=== PATIENT | female | born 1980 | race Caucasian/White ===

== ENCOUNTER 2019-05-21 06:46 | Emergency (ER) | payer MEDICAID, SELFPAY ==
[2019-05-21 06:55] VITALS: BP 125/66; PULSE 82; RESP 16; TEMP 36.4; O2SAT 100
--- NOTE | 2019-05-21 07:06 | ED.GENADUL_ITS ---
Discharge Plan Disposition Patient Disposition: HOME Condition: Stable Discharge Details Chief Complaint: Nk/Back Pain Clinical Impression: Acute cervical myofascial strain, Acute thoracic myofascial strain Primary Care Provider: Margie Ramey ED Provider: Tara Lou Home Meds and New Rx's Prescriptions: New methocarbamol 750 mg tablet 750 mg PO QID PRN (Reason: muscle spasm) Qty: 10 RF: 0 lidocaine [Lidoderm] 5 % adhesive patch,medicated 1 patch TP DAILY PRN (Reason: pain) Qty: 15 RF: 0 Continued acetaminophen [Tylenol] 325 MG tablet 1,000 mg PO Q4H PRN RF: 0 multivitamin 1 EACH capsule 1 cap PO DAILY RF: 0 ibuprofen 600 MG tablet 600 mg PO Q6H PRN (Reason: Pain) Qty: 20 RF: 0 Probiotic 3 billion cell Capsule 3,000 mmu cells PO DAILY RF: 0 Discharge Instructions Instructions: Cervical Strain (ED), Thoracic Back Strain (ED) Additional Instructions: Alternate ice and heat to the affected area several times daily for 20 minutes at a time. Alternate Tylenol and Motrin as needed and directed for pain. Use the methocarbamol muscle relaxer and Lidoderm topical patch as directed. Follow-up with your primary care doctor this week for reevaluation as needed. Return immediately to the emergency department if you develop any worsening or new concerning symptoms. Stand Alone Forms: Work Release Discharge Data Discharge Date/Time-TO BE ENTERED AT DEPARTURE: 05/21/19 08:04 Discharge Physician: Tara Lou Medical Decision Making 39-year-old female presents with right neck and right upper back pain that started over the past few days after frequently lifting kids at work and at home. She admits to limitation of range of motion of head and right upper extremity. Denies any weakness or numbness. She is holding her head slightly rotated to the left with limitation of side bending and rotation to the right. She has significant tenderness to palpation of right cervical paraspinal and right thoracic paraspinal region. No focal d eficits. Neurovascularly intact. Patient denies chance of and declines test. She has an allergy to adhesive but has tolerated salon pause. Will place a Lidoderm patch and give a Toradol injection. She is driving herself home. We will send with a prescription for Lidoderm patch as well as Robaxin. She is advised to follow-up with her primary care doctor for reevaluation and to return here anytime if worse. HPI General Mode of arrival: ambulatory . Date/Time Provider Initiated Documentation: 05/21/19 06:50 . Limitations to Documentation: no limitations . Information obtained by: patient . HPI Narrative: Patient is a 39-year-old female who presents with right neck and right upper back pain over the past few days. 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 She is having limitation of range of motion of her head to the right as well as lifting her right upper arm due to significant pain. She has alternated Tylenol and Motrin and use salon past without significant relief. She states she was unable to sleep due to the pain. She states she woke this morning with worsening pain and spasm. She denies any fever, arm weakness, numbness, chest pain or shortness of breath. Related Data Home Medications Medication Instructions Recorded Confirmed acetaminophen [Tylenol] 1,000 mg PO Q4H PRN tab-cap 07/06/13 05/21/19 ibuprofen 600 mg PO Q6H PRN #20 tab 03/28/18 05/21/19 multivitamin 1 cap PO DAILY 03/28/18 05/21/19 Probiotic 3,000 mmu cells PO DAILY 05/21/19 05/21/19 lidocaine [Lidoderm] 1 patch TP DAILY PRN #15 each 05/21/19 methocarbamol 750 mg PO QID PRN #10 tab 05/21/19 Previous Rx's Medication Instructions Recorded ibuprofen 600 mg PO Q6H PRN #20 tab 03/28/18 lidocaine [Lidoderm] 1 patch TP DAILY PRN #15 each 05/21/19 methocarbamol 750 mg PO QID PRN #10 tab 05/21/19 Allergies Allergy/AdvReac Type Severity Reaction Status Date / Time adhesive Allergy blistering Unverified 05/21/19 06:59 ciprofloxacin [From Cipro] Allergy hives/rash Unverified 05/21/19 06:59 nickel [Nickel] Allergy rash Unverified 05/21/19 06:59 General Stated Complaint: Nk/Back Pain JEROME: 4 Review of Systems Review of Systems All systems reviewed & are unremarkable except as noted in HPI and below Constitutional Reports as per HPI, Denies chills and Denies fever(s) Eyes Denies blurry vision ENT Denies dizziness, Reports neck pain, Denies sore throat and Denies throat swelling Cardiovascular Denies chest pain and Denies dyspnea Respiratory Denies cough and Denies dyspnea Gastrointestinal Denies abdominal pain, Denies diarrhea and Denies vomiting Genitourinary Denies hematuria and Denies dysuria Musculoskeletal Reports back pain, Reports neck pain and Denies numbness Integumentary/Breasts Denies lesions and Denies rash Neurologic Denies dizziness, Denies focal weakness and Denies numbness Allergic/Immunologic Denies throat swelling REPLACED BY [facility] Medical History No significant past medical history (Acute) Surgical History H/O section (Chronic) Social History Smoking/Tobacco Use Status: Current every day Tobacco Type: cigarettes Smoking cigarettes per day: 10 Alcohol Intake: current Alcohol Intake frequency: a few times a month Alcohol type: wine Drug use: Never Do you feel safe at home: Yes Do you feel safe in your relationship?: Yes Exam Const General: cooperative, healthy appearing and no acute distress HENMT Head: normal to inspection Mouth: oral mucosae normal Eyes General: appearance normal, both eyes and all related structures Resp Effort & Inspection: normal respiratory effort and able to speak in complete sentences Cardio Rate: regular rate Back/Spine/Pelvis Cervical Spine: cervical muscular tenderness (Right side) and No cervical spinal tenderness Thoracic/Lumbar Spine: paraspinal tenderness (Right upper thoracic) and No thoracic spinal tenderness Other: Limited range of motion of head, most significantly with right side bend ing and right rotation. Holding head slightly rotated to the left. Back/spine/pelvis image: 1. Significant tenderness palpation extending from right paraspinal cervical region down to right upper paraspinal thoracic region. No evidence of rash or trauma. Skin General skin exam: no rashes or lesions noted Neuro General: alert, awake and oriented x3 Motor: muscle tone normal throughout and strength 5/5 throughout Other: Muscle strength bilateral upper extremities within normal limits and 5/5. Limited range of motion with abduction and flexion of right shoulder due to pain and right-sided neck and back. Extrem General: normal to inspection Other: Limited abduction and flexion of right arm due to pain in right neck and right upper back but normal muscle strength against resistance. Psych Appearance: grossly normal Affect: normal affect Course Vital Signs Temperature 97.6 F 05/21/19 06:55 Pulse 82 05/21/19 06:55 Respiratory Rate 16 05/21/19 06:55 Blood Pressure 125/66 05/21/19 06:55 Pulse Oximetry 100 05/21/19 06:55 Temperature 97.6 F 05/21/19 06:55 Pulse 82 05/21/19 06:55 Respiratory Rate 16 05/21/19 06:55 Respiratory Effort Non-Labored 05/21/19 06:58 Blood Pressure 125/66 05/21/19 06:55 Blood Pressure Position Sitting 05/21/19 06:55 Pulse Oximetry 100 05/21/19 06:55 Oxygen Delivery Method Room Air 05/21/19 06:55 Oxygen Flow Rate 0 05/21/19 06:55 Pain Level 6 05/21/19 07:01
[2019-05-21] MEDS: Ketorolac 60 MG/2 ML VIAL IM (07:32)
[2019-05-21] MEDS: Lidocaine 5% Patch 1 PATCH TP (07:33)
== END 2019-05-21 08:04 | disposition home or self-care (01) ==
PROVIDERS: Emergency Provider Physician Assistant; PCP Nurse Practitioner Adult Health
DX: S16.1XXA Strain of muscle, fascia and tendon at neck level, initial encounter (principal); S29.012A Strain of muscle and tendon of back wall of thorax, initial encounter; X50.3XXA Overexertion from repetitive movements, initial encounter
CPT/HCPCS: 96372; 99284; J1885

== ENCOUNTER 2019-11-19 09:28 | Outpatient (CLI) | payer MEDICAID, SELFPAY ==
[2019-11-19 11:36] LABS: HCG Quant, Pregnancy 7124 mIU/mL (1-3)
== END 2019-11-19 09:48 ==
PROVIDERS: PCP Nurse Practitioner Adult Health; Visit Provider Advanced Practice Midwife
DX: O20.8 Other hemorrhage in early pregnancy (principal)
CPT/HCPCS: 36415; 84702

== ENCOUNTER 2019-11-21 10:18 | Outpatient (CLI) | payer MEDICAID, SELFPAY ==
[2019-11-21 11:51] LABS: HCG Quant, Pregnancy 7724 mIU/mL (1-3)
== END 2019-11-21 10:38 ==
PROVIDERS: PCP Nurse Practitioner Adult Health; Visit Provider Advanced Practice Midwife
DX: Z32.01 Encounter for pregnancy test, result positive (principal)
CPT/HCPCS: 36415; 84702

== ENCOUNTER 2019-11-21 13:22 | Outpatient (CLI) | payer MEDICAID, SELFPAY ==
--- NOTE | 2019-11-21 14:00 | DI.US_ITS ---
EXAM: US OB 1ST TRIMESTER CLINICAL HISTORY: spotting, threatened ab, minimal rise in hcg over 48 hrs., N20.9. COMPARISON: OB US 2-3 TRIMESTER TRANSABD*P from 05/03/2013 TECHNIQUE: Transabdominal Transvaginal first trimester obstetrical ultrasound performed. FINDINGS: Sonographic images demonstrate a single intrauterine gestation. A yolk sac and pole are seen. Sonographically assessed gestational age based upon crown-rump length is: 6 weeks. heart rate motion is Dopplered at: 105 bpm. Small amount of free fluid in the right adnexa. Both ovaries were visualized. There is a corpus luteal cyst on the right ovary. The left ovary is u nremarkable. IMPRESSION: Single live intrauterine gestation as above. DATA REPOSITORY:
== END 2019-11-21 13:42 ==
PROVIDERS: PCP Nurse Practitioner Adult Health; Visit Provider Advanced Practice Midwife
DX: N83.291 Other ovarian cyst, right side; O20.0 Threatened abortion
CPT/HCPCS: 76801

== ENCOUNTER 2020-01-01 14:40 | Outpatient (REF) | payer MEDICAID, SELFPAY ==
--- NOTE | 2020-01-01 14:25 | PAPFT_PTH ---
PATIENT: Isi Mckeon LOC: [facility] #:[id number] AGE/SX: 39/F ROOM: RE01/01/[address]: Kathryn Boudreaux RN : 1980 BED: DIS: 01/01/2020 SPEC #: [id number] RECD: 01/02/20 12:14 STATUS: JACOB REParish #: [id number] RACHELL: 01/01/20 14:[address]: Kathryn Boudreaux DEPT: [facility] Cytology RECD BY: Serg Love Tissues: 1 - CX/ENDOCX FOR PAP SMEARS Procedures: PAP THIN PREP/UVM Screening HPV DNA PROBE Comments: [id number] (Unsatisfactory for evaluation)
[2020-01-01 19:02] LABS: *AMPHETAMINES SCREEN URINE Negative (Negative); *BARBITURATES SCREEN URINE Negative (Negative); *BENZODIAZEPINES SCREEN URINE Negative (Negative); Cannabinoids THC Negative (Negative); Cocaine Screen,Urine Negative (Negative); METHADONE URINE SCREEN Negative (Negative); OPIATES URINE SCREEN Negative (Negative)
[2020-01-01 19:16] LABS: Tricyclic Antidepressants Negative (Negative)
[2020-01-03 12:19] LABS: Chlamydia Result Negative (Negative); GC Result Negative (Negative)
[2020-01-08 09:33] LABS: Buprenorphine Negative; Norbuprenorphine Negative
== END 2020-01-01 15:00 ==
LOC: LBN 14:40
PROVIDERS: PCP Nurse Practitioner Adult Health; Visit Provider Advanced Practice Midwife
DX: Z34.91 Encounter for supervision of normal pregnancy, unspecified, first trimester (principal); Z11.3 Encounter for screening for infections with a predominantly sexual mode of transmission; Z12.4 Encounter for screening for malignant neoplasm of cervix; Z11.51 Encounter for screening for human papillomavirus (HPV); R87.615 Unsatisfactory cytologic smear of cervix
CPT/HCPCS: 80307; 87491; 87591; 88142; 87086; 87624

== ENCOUNTER 2020-01-03 01:44 | Outpatient (CLI) | payer MEDICAID, SELFPAY ==
[2020-01-03 14:39] LABS: Abs Immature Grans 0.03 k/cumm (0.0-0.09); Absolute Basophil Count 0.01 k/cumm (0.0-0.2); Absolute Eosinophil Count 0.34 k/cumm (0.0-0.7); Absolute Lymphocyte Count 2.23 k/cumm (1.2-3.4); Absolute Monocyte Count 0.97 k/cumm (0.11-0.7); Absolute Neutrophil Count 6.55 k/cumm (1.2-6.7); Basophils % 0.1; Eosinophils % 3.4; HCT 35.1 % (36.0-46.0); HGB 11.7 g/dL (12.0-15.5); Immature Grans % 0.3 %; Mean Corp. HGB Concentration 33.3 g/dL (32.0-36.0); Mean Corpuscular Hemoglobin 31.4 pg (27.0-33.0); Mean Corpuscular Volume 94.1 fL (80-95); Mean Platelet Volume 9.2 fL (8.0-11.0); Monocytes % 9.6; Neutrophils % 64.6; Platelet Count 257 x1000/uL (130-400); RBC 3.73 m/cumm (4.00-5.20); RBC Distribution Width 13.1 % (11.7-14.6); White Blood Cell Count 10.13 k/cumm (4.4-10.8)
[2020-01-03 15:44] LABS: TSH (W/Ref FT4) 1.64 uIU/mL (0.36-3.74)
[2020-01-04 09:58] LABS: Varicella IgG Antibody Positive (See Note)
[2020-01-04 11:00] LABS: Rubella IgG Ab (UVM) Positive (See Note)
[2020-01-04 12:30] LABS: Hepatitis B Surface Ag Negative (Negative)
[2020-01-04 13:58] LABS: HIV-1/2 Ag & Ab Screen Negative (Negative); Hepatitis C Ab w Rflx HCV PCR Negative (Negative)
[2020-01-04 16:03] LABS: Syphilis Total Ab w/Reflex Nonreactive (Nonreactive)
== END 2020-01-03 02:04 ==
PROVIDERS: PCP Nurse Practitioner Adult Health; Visit Provider Advanced Practice Midwife
DX: Z34.91 Encounter for supervision of normal pregnancy, unspecified, first trimester (principal); Z11.4 Encounter for screening for human immunodeficiency virus [HIV]; Z11.59 Encounter for screening for other viral diseases; Z01.84 Encounter for antibody response examination
CPT/HCPCS: 36415; 86787; 86803; 86850; 86900; 86901; 87340; 87389; 84443; 85025; 86762; 86780

== ENCOUNTER 2020-01-10 01:37 | Outpatient (CLI) | payer MEDICAID, SELFPAY ==
[2020-01-10 11:02] LABS: Kit/Specimen SENT
[2020-01-14 15:12] LABS: Specimen WB Whole Blood
[2020-01-15 16:23] LABS: Result Summary NEGATIVE; Specimen WB Whole Blood
== END 2020-01-10 01:57 ==
PROVIDERS: PCP Nurse Practitioner Adult Health; Visit Provider Obstetrics & Gynecology Maternal & Fetal Medicine
DX: Z31.430 Encounter of female for testing for genetic disease carrier status for procreative management (principal); O09.521 Supervision of elderly multigravida, first trimester; Z36.89 Encounter for other specified antenatal screening
CPT/HCPCS: 36415; 81329; 83080; 81220

== ENCOUNTER 2020-03-24 14:01 | Outpatient (CLI) | payer MEDICAID, SELFPAY ==
[2020-03-29 02:29] LABS: SARS-CoV-2 RNA Undetected (Undetected); SARS-CoV-2 Specimen Source Nasopharynx
== END 2020-03-24 14:21 ==
PROVIDERS: PCP Nurse Practitioner Adult Health; Visit Provider Advanced Practice Midwife
DX: Z11.59 Encounter for screening for other viral diseases (principal)
CPT/HCPCS: U0003

== ENCOUNTER 2020-03-31 09:47 | Outpatient (CLI) | payer MEDICAID, SELFPAY ==
[2020-04-02 17:04] LABS: SARS-CoV-2 RNA Undetected (Undetected)
== END 2020-03-31 10:07 ==
PROVIDERS: PCP Nurse Practitioner Adult Health; Visit Provider Advanced Practice Midwife
DX: Z20.828 Contact with and (suspected) exposure to other viral communicable diseases (principal)
CPT/HCPCS: U0003

== ENCOUNTER 2020-04-28 02:30 | Outpatient (CLI) | payer MEDICAID, SELFPAY ==
[2020-04-28 09:37] LABS: HCT 32.6 % (36.0-46.0); HGB 11.2 g/dL (11.2-15.7); MCH 31.8 pg (27.0-33.0); MCHC 34.4 % (32.0-36.0); MCV 92.6 fL (80-95); MPV 9.3 fL (8.0-11.0); Platelet Count 218 10^3/uL (130-400); RBC 3.52 10^6/uL (3.93-5.22); RDW 12.7 % (11.7-14.6); RDW-SD 42.8 fL; WBC 10.41 10^3/uL (4.4-10.8)
[2020-04-28 09:44] LABS: Glucose,1 Hr (Glucola) 120 mg/dL (80-140)
== END 2020-04-28 02:50 ==
PROVIDERS: Advanced Practice Midwife; PCP Nurse Practitioner Adult Health; Visit Provider Advanced Practice Midwife
DX: Z34.90 Encounter for supervision of normal pregnancy, unspecified, unspecified trimester (principal)
CPT/HCPCS: 36415; 82950; 85027

== ENCOUNTER 2020-05-21 16:13 | Observation (INO) | payer MEDICAID, SELFPAY ==
[2020-05-21 16:16] VITALS: BP 154/70; PULSE 98; RESP 16; TEMP 36.7; O2SAT 98
--- NOTE | 2020-05-21 16:30 | DI.RAD_ITS ---
EXAM: XR ANKLE RT COMPLETE CLINICAL HISTORY: pain, fall, tender lateral. TECHNIQUE: 2D digital imaging was performed. COMPARISON: No exams were available for comparison FINDINGS: BONES: No acute fracture is present. No bony destructive lesion is seen. JOINTS: The ankle mortise is normally aligned. SOFT TISSUE: Soft tissue swelling. IMPRESSION: No acute fracture or dislocation. Soft tissue swelling. DATA REPOSITORY: RADIATION DOSE DELIVERED:
--- NOTE | 2020-05-21 16:41 | W.ED.GENAD ---
Discharge Plan Disposition Patient Disposition: [facility] INPATIENT Condition: Serious Discharge Details Clinical Impression: Right ankle sprain, Contusion of right elbow, Closed head injury, Fall Admit Date/Time: 05/21/20 17:39 Admit Provider: Cheyanne Otero Attending Provider: Cheyanne Otero Primary Care Provider: Margie Ramey ED Provider: Willian Caputo Discharge Data Discharge Date/Time-TO BE ENTERED AT DEPARTURE: 05/21/20 18:00 Medical Decision Making [id number]??40-year-old female at 32 weeks here after mechanical trip and fall with injury to her head, right elbow and right ankle. Also with twisting injury and some discomfort right lower back. Patient has tenderness right lateral elbow and pain with any movement of the elbow. Concern for fracture versus contusion. Will obtain x-ray. Patient has tenderness right lateral ankle and pain with any flexion of the ankle. Concern for fracture versus sprain. Will obtain x-ray. Cervical spine is nontender with full range of motion. She has no pain in her neck. She is neurologically intact. Will not image CT spine at this time to avoid unnecessary radiation. Patient did have some lower abdominal cramping. No vaginal bleeding. heart rate by nursing 135. Abdominal exam is benign. 1741 --CT of the head was interpreted by radiology: No acute intracranial process. X-ray of the right ankle was interpreted by radiology: Soft tissue swelling about the ankle with no acute fracture dislocation. X-ray of the right elbow was reviewed and interpreted by radiology: No acute fracture or dislocation. Suspect ankle sprain and elbow contusion. I will provide sling and ankle stabilizer. I spoke with Dr. Otero who will admit the patient to labor and delivery for monitoring. Patient request patient be transferred to L&D at this time. HPI General Mode of arrival: ambulatory. Date/Time Provider Initiated Documentation: 05/21/20 16:27. Limitations to Documentation: no limitations. Information obtained by: patient. HPI Narrative: 40-year-old G5, P4 at 32 weeks here after mechanical trip and fall from standing to the ground with chief complaint of headache. Patient notes she struck her posterior left head on the ground during the fall. She did not blackout. She is had headache that is severe since the fall. No associated neck pain. No numbness or tingling. No weakness. She also notes she struck her right elbow and has pain with any movement of the elbow. She also notes that she twisted her right ankle and has pain laterally. No abdominal pain. She does have some right low back pain. She states that she twisted her back during the fall. She was feeling some increased cramping abdominally lower down but is not currently feeling these cramps. No vaginal bleeding. Related Data Home Medications Medication Instructions Recorded Confirmed Probiotic 3,000 mmu cells PO DAILY 05/21/19 06/10/20 prenat.vits,pia,occ-wxhe-senmx 1 tab PO DAILY 11/16/19 06/10/20 aspirin 81 mg tablet,delayed 81 mg PO DAILY 03/03/20 06/10/20 release docosahexaenoic acid 200 mg capsule 200 mg PO DAILY cap 03/03/20 06/10/20 Allergies Allergy/AdvReac Type Severity Reaction Status Date / Time adhesive Allergy blistering Unverified 05/21/20 16:24 ciprofloxacin [From Cipro] Allergy hives/rash Unverified 05/21/20 16:24 nickel [Nickel] Allergy rash Unverified 05/21/20 16:24 General Stated Complaint: Trauma JEROME: 2 Review of Systems All systems reviewed & are unremarkable except as noted in HPI and below Constitutional Constitutional: Denies fever(s) Cardiovascular Cardiovascular: Denies dyspnea Respiratory Respiratory: Denies cough and Denies dyspnea Musculoskeletal Musculoskeletal: Reports as per HPI [facility] Medical History (Updated 06/10/20 @ 09:30 by Cheyanne Otero DO) Elevated blood pressure affecting in third trimester, antepartum Threatened in first trimester Surgical History H/O section for breech Family History Mother Cancer cervical Brain benign neoplasm Father A-fib Social History Smoking/Tobacco Use Status: Current every day Tobacco Type: cigarettes Tobacco: How many years used: 12 Quit status: has quit before Alcohol Intake: current Alcohol Intake frequency: a few times a month Alcohol type: wine Details: random social dirnker last used x-mas nargis. Drug use: Never Do you feel safe at home: Yes Do you feel safe in your relationship?: Yes History History 5 Para 4 Hx # Term Pregnancies 4 Multiple births 0 Hx # Pregnancies 0 Ectopic pregnancies 0 AB induced 0 Hx Number of Living Children 4 AB spontaneous 0 Past Pregnancies Del. Date GA/Weeks # Outcome Route Wgt Sex Labor Lgth Anesthesia Location Prov Complic 03/05/03 42 No Successful vaginal 3685.438 g Female iol for post dates x 3days lelong/cora ovd vacuum low apgars 01/18/07 42 No Successful vaginal 4422.526 g Male x 2 hrs jai egan cnm/long for pph hemorrhage 02/24/12 42 No Successful vaginal 3940.584 g Male post dates iol x 6 hrs locum cnm 05/24/13 40 No Successful 4309.127 g Male c/s regional dr. braga Delivery Date: 03/05/03 ? medio lateral episiotomy : 2/5/6 LEKATHIA,ANEA Delivery Date: 01/18/07 sweep of lower uterine segment, miso pr LEKATHIA,ANEA Delivery Date: 02/24/12 w/o c/omplications LELONG,ANEA Delivery Date: 05/24/13 breech presentation after unstable lie x3 LELONG,ANEA Exam Const General: cooperative and no acute distress HENLA Head: normocephalic and atraumatic Mouth: moist mucous membranes Eyes Conjunctivae: normal conjunctivae Sclera: normal sclerae EOM: EOM intact bilaterally Neck Neck: full ROM, trachea midline, supple, no midline deformity and nontender Resp Auscultation: clear to auscultation bilaterally, no rales, no rhonchi and no wheezes Cardio Jugular venous pressure: no JVD Rate: regular rate and not tachycardic Rhythm: regular rhythm GI Inspection: distended Palpation: soft, not firm, no guarding, no masses, not rigid and nontender Back/Spine/Pelvis Back: No ecchymosis Thoracic/Lumbar Spine: paraspinal tenderness (Right lumbar), No thoracic spinal tenderness and No lumbar spinal tenderness Skin General skin exam: no rashes or lesions noted Trauma: abrasion (Right lateral ankle) Neuro General: patient alert, patient awake, patient oriented x3 and tone normal Cognition: normal cognition Speech: speech normal Motor: strength 5/5 throughout Sensory Exam: no sensory deficits noted Extrem General: no edema Psych Appearance: grossly normal Mental Status: mental status grossly normal Course Vital Signs Vital signs: Vital Signs Temperature 36.7 C 05/21/20 16:16 Pulse 98 H 05/21/20 16:16 Respiratory Rate 16 05/21/20 16:16 Blood Pressure 154/70 H 05/21/20 16:16 Pulse Oximetry 98 05/21/20 16:16 Temperature 36.7 C 05/21/20 16:16 Temperature Source Skin 05/21/20 16:16 Pulse 98 H 05/21/20 16:16 Respiratory Rate 16 05/21/20 16:16 Respiratory Effort 05/21/20 16:23 Blood Pressure 154/70 H 05/21/20 16:16 Blood Pressure Position Sitting 05/21/20 16:16 Pulse Oximetry 98 05/21/20 16:16 Oxygen Delivery Method Room Air 05/21/20 16:16 Oxygen Flow Rate 0 05/21/20 16:16 Pain Level 6 05/21/20 16:16
--- NOTE | 2020-05-21 17:12 | DI.RAD_ITS ---
EXAM: XR ELBOW RT COMPLETE CLINICAL HISTORY: trauma, pain posterior lateral. TECHNIQUE: 2D digital imaging was performed. COMPARISON: No exams were available for comparison FINDINGS: BONES: No acute fracture is present. No bony destructive lesion is seen. JOINTS: The elbow is normally aligned. No joint effusion is seen. SOFT TISSUE: Normal. IMPRESSION: Unremarkable radiographs of the right elbow. DATA REPOSITORY: RADIATION DOSE DELIVERED:
--- NOTE | 2020-05-21 17:21 | DI.VRAD_ITS ---
PROCEDURE INFORMATION: Exam: XR Right Ankle Exam date and time: 05/21/2020 5:16 PM Age: 40 years old Clinical indication: Other: Trauma, pain posterior lateral TECHNIQUE: Imaging protocol: XR Right ankle. Views: 3 or more views. COMPARISON: No relevant images were readily available for comparison purposes. FINDINGS: Bones/joints: No acute fracture or dislocation. Soft tissues: Soft tissue swelling about the ankle. IMPRESSION: Soft tissue swelling about the ankle with no acute fracture or dislocation. Dictated and Authenticated by: Rosalino Rowland MD. Ordering:ULI Dorsey MD
--- NOTE | 2020-05-21 17:22 | DI.VRAD_ITS ---
PROCEDURE INFORMATION: Exam: XR Right Elbow Exam date and time: 05/21/2020 5:12 PM Age: 40 years old Clinical indication: Other: Trauma, pain posterior lateral TECHNIQUE: Imaging protocol: XR Right elbow. Views: 3 or more views. COMPARISON: No relevant images were readily available for comparison purposes. FINDINGS: Bones/joints: No acute fracture or dislocation. Soft tissues: Unremarkable. IMPRESSION: No acute fracture or dislocation. Dictated and Authenticated by: Rosalino Rowland MD. Ordering:ULI Dorsey MD
--- NOTE | 2020-05-21 17:23 | DI.CT_ITS ---
EXAM: CT HEAD WO CLINICAL HISTORY: head trauma, left occiput. TECHNIQUE: Imaging Protocol: Axial computed tomography images with coronal and sagittal reformatted images were created and reviewed COMPARISON: No exams were available for comparison FINDINGS: Ventricles and Extra axial spaces: Normal in size and morphology for the patient's age. Hemorrhage: None. Cerebral parenchyma: Normal. Midline shift: None. Brainstem/Cerebellum: Normal. Calvarium: Normal. Visualized Paranasal sinuses/Mastoids: Clear. Soft Tissues: Unremarkable. IMPRESSION: No acute intracranial process. RADIATION DOSE DELIVERED: 756.3mGy.cm Total DLP DATA REPOSITORY: All CT scans at this facility are submitted to the National Radiology Data Registry (NRDR) Dose Index Registry (DIR) with the [employer] (ACR). RADIATION OPTIMIZATION: All CT scans at this facility use at least one of these dose optimization te chniques: automated exposure control; mA and/or kV adjustment per patient size (includes targeted exa ms where dose is matched to clinical indication); or iterative reconstruction.
--- NOTE | 2020-05-21 17:28 | DI.VRAD_ITS ---
PROCEDURE INFORMATION: Exam: CT Head Without Contrast Exam date and time: 05/21/2020 4:41 PM Age: 40 years old Clinical indication: Other: Head trauma, left occiput TECHNIQUE: Imaging protocol: Computed tomography of the head without contrast. Radiation optimization: All CT scans at this facility use at least one of these dose optimization techniques: automated exposure control; mA and/or kV adjustment per patient size (includes targeted exams where dose is matched to clinical indication); or iterative reconstruction. COMPARISON: No relevant images were readily available for comparison purposes. FINDINGS: Brain: No acute infarct, acute hemorrhage, or intracranial mass. Ventricles: Ventricles and sulci are relatively symmetric in appearance. No hydrocephalus. Bones/joints: No acute skull fracture. Sinuses: Paranasal sinuses are clear. Mastoid air cells: Mastoid air cells are clear. Orbits: Globes and orbits are intact. Soft tissues: Superficial soft tissues are unremarkable. IMPRESSION: No acute intracranial process. Dictated and Authenticated by: Rosalino Rowland MD. Ordering:ULI Dorsey MD
[2020-05-21 17:53] VITALS: BP 114/66; PULSE 79; RESP 20; TEMP 36.3; O2SAT 96
[2020-05-21] MEDS: Acetaminophen 500 MG TAB 1000 MG PO (20:14)
== END 2020-05-21 22:05 | disposition home or self-care (01) ==
LOC: ER 17:45 → OBS 22:07
PROVIDERS: Admitting Provider Obstetrics & Gynecology; Emergency Provider Student in an Organized Health Care Education/Training Program; PCP Nurse Practitioner Adult Health; Visit Provider Obstetrics & Gynecology
DX: O9A.213 Injury, poisoning and certain other consequences of external causes complicating pregnancy, third trimester (principal); O99.333 Smoking (tobacco) complicating pregnancy, third trimester; O09.523 Supervision of elderly multigravida, third trimester; S93.401A Sprain of unspecified ligament of right ankle, initial encounter; Z3A.32 32 weeks gestation of pregnancy; S50.01XA Contusion of right elbow, initial encounter; S09.90XA Unspecified injury of head, initial encounter; M54.5 Low back pain; W19.XXXA Unspecified fall, initial encounter; X50.0XXA Overexertion from strenuous movement or load, initial encounter; F17.210 Nicotine dependence, cigarettes, uncomplicated
CPT/HCPCS: 99285; 59025; 70450; 73080; 73610; 99284; G0378

== ENCOUNTER 2020-06-10 11:04 | Outpatient (REF) | payer MEDICAID, SELFPAY ==
[2020-06-10 11:22] LABS: Abs Immature Grans 0.07 10^3/uL (0.0-0.06); Absolute Basophil Count 0.02 10^3/uL (0.0-0.2); Absolute Eosinophil Count 0.16 10^3/uL (0.0-0.7); Absolute Lymphocyte Count 1.73 10^3/uL (1.2-3.4); Absolute Monocyte Count 1.03 10^3/uL (0.1-0.8); Absolute Neutrophil Count 8.53 10^3/uL (1.2-6.7); Basophils % 0.2; Eosinophils % 1.4; HCT 35.1 % (36.0-46.0); HGB 11.7 g/dL (11.2-15.7); Immature Grans % 0.6; MCHC 33.3 % (32.0-36.0); MCV 93.1 fL (80-95); MPV 10.3 fL (8.0-11.0); Monocytes % 8.9; Neutrophils % 73.9; Nucleated RBC 0 %; Platelet Count 225 10^3/uL (130-400); RBC 3.77 10^6/uL (3.93-5.22); RDW 12.7 % (11.7-14.6); RDW-SD 43.5 fL; WBC 11.54 10^3/uL (4.4-10.8)
[2020-06-10 11:47] LABS: PROTEIN 6.9 mg/dL
[2020-06-10 11:50] LABS: COMMENT (LAB VIEW ONLY) 29.18 mg/dL; Prot/Crea Ur Ratio 0.23
[2020-06-10 11:52] LABS: ALT 20 U/L (14-59); AST 21 U/L (15-37); Albumin 2.5 g/dL (3.4-5.0); Alkaline Phosphatase 94 U/L (46-116); BUN 5 mg/dL (7-18); Bilirubin, Total 0.5 mg/dL (0.2-1.0); CREATININE 0.48 mg/dL (0.55-1.02); Calcium 8.6 mg/dL (8.5-10.1); Chloride 105 mmol/L (98-107); Glucose 82 mg/dL (74-106); Potassium 3.9 mmol/L (3.5-5.1); Sodium 138 mmol/L (136-145); Total Protein 5.8 g/dL (6.4-8.2)
== END 2020-06-10 11:24 ==
LOC: LBN 11:04
PROVIDERS: PCP Nurse Practitioner Adult Health; Visit Provider Obstetrics & Gynecology
DX: O16.3 Unspecified maternal hypertension, third trimester (principal); O09.523 Supervision of elderly multigravida, third trimester
CPT/HCPCS: 80053; 82565; 84156; 85025

== ENCOUNTER 2020-06-17 12:19 | Outpatient (REF) | payer MEDICAID, SELFPAY ==
[2020-06-17 13:22] LABS: *AMPHETAMINES SCREEN URINE Negative (Negative); *BARBITURATES SCREEN URINE Negative (Negative); *BENZODIAZEPINES SCREEN URINE Negative (Negative); Cannabinoids THC Negative (Negative); Cocaine Screen,Urine Negative (Negative); METHADONE URINE SCREEN Negative (Negative); OPIATES URINE SCREEN Negative (Negative)
[2020-06-17 13:24] LABS: Tricyclic Antidepressants Negative (Negative)
[2020-06-20 11:58] LABS: Buprenorphine Negative
== END 2020-06-17 12:39 ==
LOC: LBN 12:19
PROVIDERS: PCP Nurse Practitioner Adult Health; Visit Provider Obstetrics & Gynecology Gynecology
DX: Z34.93 Encounter for supervision of normal pregnancy, unspecified, third trimester (principal); Z36.85 Encounter for antenatal screening for Streptococcus B; Z3A.36 36 weeks gestation of pregnancy
CPT/HCPCS: 80307; 87081

== ENCOUNTER 2020-06-24 15:00 | Outpatient (REF) | payer MEDICAID, SELFPAY | END 2020-06-24 15:20 | LOC: LBN 15:00 | PROVIDERS: PCP Nurse Practitioner Adult Health; Visit Provider Obstetrics & Gynecology | DX: R31.9 Hematuria, unspecified (principal) | CPT/HCPCS: 87077; 87086 ==

== ENCOUNTER 2020-06-24 23:19 | Outpatient (CLI) | payer MEDICAID, SELFPAY ==
--- NOTE | 2020-06-24 09:30 | DI.US_ITS ---
EXAM: US RENAL CLINICAL HISTORY: Hematuria and flank pain R31.9, R10.9 ABD PAIN TECHNIQUE: Ultrasound performed using standard protocol. COMPARISON: US US OB 1ST TRIMESTER from 11/21/2019 FINDINGS: Renal ultrasound was performed according to the usual protocol. Note is made of an intrauterine gest ation. There is slight caliceal prominence on the right consistent with minimal to mild hydronephros is typically associated with . No hydronephrosis on the left. No renal calcification or ma ss. Urinary bladder appears normal and empties completely with voiding. IMPRESSION: Minimal to mild right hydronephrosis, the findings are not unusual in a 3rd trimester gestation. DATA REPOSITORY:
== END 2020-06-24 23:39 ==
PROVIDERS: PCP Nurse Practitioner Adult Health; Visit Provider Obstetrics & Gynecology
DX: N13.30 Unspecified hydronephrosis (principal); R31.9 Hematuria, unspecified; R10.9 Unspecified abdominal pain
CPT/HCPCS: 76770

== ENCOUNTER 2020-07-04 08:10 | Outpatient (CLI) | payer MEDICAID, SELFPAY ==
[2020-07-05 14:58] LABS: COVID-19 RT-PCR Result NEGATIVE (Negative)
== END 2020-07-04 08:30 ==
PROVIDERS: PCP Nurse Practitioner Adult Health; Visit Provider Obstetrics & Gynecology
DX: Z11.59 Encounter for screening for other viral diseases (principal); Z01.818 Encounter for other preprocedural examination
CPT/HCPCS: U0003

== ENCOUNTER 2020-07-07 03:38 | Outpatient (CLI) | payer MEDICAID, SELFPAY ==
[2020-07-07 09:54] LABS: HCT 36.1 % (36.0-46.0); HGB 12.1 g/dL (11.2-15.7); MCH 31.4 pg (27.0-33.0); MCHC 33.5 % (32.0-36.0); MCV 93.8 fL (80-95); Platelet Count 199 10^3/uL (130-400); RBC 3.85 10^6/uL (3.93-5.22); RDW 13.4 % (11.7-14.6); RDW-SD 45.5 fL; WBC 11.68 10^3/uL (4.4-10.8)
== END 2020-07-07 03:58 ==
PROVIDERS: PCP Nurse Practitioner Adult Health; Visit Provider Obstetrics & Gynecology
DX: Z01.818 Encounter for other preprocedural examination (principal)
CPT/HCPCS: 36415; 85027; 86850; 86900; 86901

== ENCOUNTER 2020-07-09 06:24 | Inpatient (IN) | payer MEDICAID, SELFPAY ==
[2020-07-09] VITALS (10 sets, daily range): BP systolic 102–132; BP diastolic 63–80; PULSE 70–89; RESP 16–20; TEMP 36.4–36.9; O2SAT 96–98
[2020-07-09] MEDS: Lactated Ringers 1,000 ML 125 ML IV ×2 (07:35→09:27)
[2020-07-09] MEDS: Sodium Citrate 30 ML CUP PO (08:41)
[2020-07-09] MEDS: ceFAZolin 2 GM/50 ML BAG IVPB (09:06)
[2020-07-09] MEDS: Oxytocin/Normal Saline 30 UNITS/500 ML BAG 95 UNITS IV (09:40)
--- NOTE | 2020-07-09 10:54 | PDOC.OPNB_ITS ---
Date of service: 07/09/20 Time of Service: 10:54 Operative Note Operative Note Delivery Method: Scheduled DATE OF PROCEDURE: 07/09/20 PRE-OP DIAGNOSES: 39 weeks. Prior section POST-OP DIAGNOSES: same PROCEDURE: Repeat low transverse section SURGEON: Jimenez Luevano Assisting Surgeon: Cheyanne Otero Anesthesia: spinal Estimated blood loss (mL): 400 Pathology: none sent Complications: None Patient was transported to: floor Patient's condition: stable Findings: 1. Delivered LBF Procedure Description: The patient was taken to the operating room and after adequate spinal anesthesia was obtained the patient was placed in supine position with a left lateral tilt. The patient was prepped and draped in the usual sterile manner. A Pfannenstiel incision was made with a #10 blade scalpel and sharp dissection was carried down to the underlying layer of fascia. The fascia was incised the midline with a scalpel and the incision carried laterally in either direction with Cesar scissors. The superior and inferior aspects of the fascial incision were dissected off the underlying layer of rectus muscles using both blunt and sharp dissection. The rectus were divided along the linea alba with blunt digital dissection. The peritoneum was entered sharply and the incision was extended superiorly and inferiorly with the Bovie cautery. The vesicouterine flap was tented up with pickups and incised with Metzenbaum scissors. The incision was extended laterally in either direction with the Metzenbaum scissors. The bladder flap was created digitally. The lower uterine segment was incised in a transverse manner with a scalpel and the incision was carried laterally in either direction via stretch. was found in cephalic presentation and delivered atraumatically. The mouth and nose were suctioned. The cord was clamped and cut. The was handed off to the awaiting senior ui ux designer. The placenta was manually extracted and the uterus cleared of all clots and debris. The hysterotomy was closed with a running locked stitch of #1 chromic. A second indicating layer of #1 chromic in a Lambert stitch was used to complete the repair and achieve hemostasis. The bladder flap was reapproximated with a running stitch of 0 Vicryl. The gutters were cleared of all clots and debris. The peritoneum was closed with a running stitch of 2-0 Vicryl. The subfascial space was thoroughly inspected and was noted to be hemostatic. The fascia was closed with a running stitch of 0 Vicryl. The subcutaneous tissues were closed with interrupted sutures of 3-0 Vicryl. The skin was closed with a running subcuticular stitch of 4-0 Monocryl and Dermabond was applied. The procedure was concluded at this point. Sponge, lap and needle counts were correct at the conclusion of the procedure. The patient tolerated the procedure well and was t ransferred to the floor in stable condition. [place] Inf[facility] Gender: Female
[2020-07-09] MEDS: Ketorolac 30 MG/ML VIAL IVP ×2 (16:35→22:35)
[2020-07-09] MEDS: Normal Saline Flush 10 ML SYR IV ×2 (16:35→22:35)
[2020-07-09] MEDS: Ibuprofen 600 MG TAB PO (21:10)
[2020-07-09] MEDS: Docusate Sodium 100 MG CAP PO (22:35)
[2020-07-10 03:37] VITALS: BP 111/65; PULSE 65; RESP 16; TEMP 36.6; O2SAT 96
[2020-07-10] MEDS: Ketorolac 30 MG/ML VIAL IVP ×2 (04:32→10:27)
[2020-07-10] MEDS: Normal Saline Flush 10 ML SYR IV ×2 (04:33→10:27)
[2020-07-10 08:10] VITALS: BP 106/62; PULSE 68; RESP 16; TEMP 36.9; O2SAT 95
--- NOTE | 2020-07-10 08:51 | W.PM.OBPNV1 ---
Date of service: 07/10/20 Time of Service: 08:51 Assessment and Plan Assessment and plan (1) Status post repeat low transverse section: Status: Acute Assessment and plan: Doing well postoperative. Continue routine postoperative care. Ambulation today. Continue breast-feeding. Subjective Subjective Patient comments: No complaints and Other (Moderate pain, poor sleep last night) Patient's Mood: Flat affect, appears baseline baby status: Doing well and Nursing well feeding status: Exclusively breast feeding Exam Physical Exam Vital signs: Temp Pulse Resp BP Pulse Ox 97.9 F 65 16 111/65 96 07/10/20 03:37 07/10/20 03:37 07/10/20 03:37 07/10/20 03:37 07/10/20 03:37 Constitutional Constitutional: no acute distress HEENT Exam HEENT Exam: Normal Respiratory Exam Respiratory Exam: Normal Cardiovascular Exam Cardiovascular Exam: Normal Abdominal Exam Abdomen: Tender Comments: Incision clean, dry, intact Fundal Exam Fundus: Below Umbilicus and Firm Extremities Exam Extremity Exam: Normal; negative Calf Tenderness and Edema
[2020-07-10] MEDS: Acetaminophen 325 MG TAB 650 MG PO (15:45)
[2020-07-10 21:14] VITALS: BP 102/61; PULSE 88; RESP 18; TEMP 37
[2020-07-10] MEDS: oxyCODONE 5 mg/Acetaminophen 325 mg TAB PO (22:14)
[2020-07-11 04:10] VITALS: BP 102/64; PULSE 71; RESP 18; TEMP 36.6
[2020-07-11] MEDS: oxyCODONE 5 mg/Acetaminophen 325 mg TAB PO ×2 (06:56→13:20)
--- NOTE | 2020-07-11 07:49 | W.PM.OBPNV1 ---
Date of service: 07/11/20 Time of Service: 07:49 Assessment and Plan Assessment and plan (1) Status post repeat low transverse section: Status: Acute Assessment and plan: Postoperative day #2 status post repeat low transverse section. She is doing well. Anticipating discharge home today. She has no complaints or issues at this time. Subjective Subjective Patient comments: No complaints, Pain well controlled, Incisional pain, Tolerating diet and Flatus present baby status: Doing well and Nursing well feeding status: Exclusively breast feeding Exam Physical Exam Vital signs: Temp Pulse Resp BP Pulse Ox 98 F 71 18 102/64 95 07/11/20 04:10 07/11/20 04:10 07/11/20 04:10 07/11/20 04:10 07/10/20 08:10 Constitutional Constitutional: no acute distress and cooperative HEENT Exam HEENT Exam: Normal Respiratory Exam Respiratory Exam: Normal Cardiovascular Exam Cardiovascular Exam: Normal Fundal Exam Fundus: Below Umbilicus and Firm Extremities Exam Extremity Exam: Normal; negative Calf Tenderness DetailedPsychiatric Exam Psych Exam: Normal Affect, Normal Thougth Process, Cooperative and Good Insight
--- NOTE | 2020-07-11 07:54 | W.PM.OBDISCH ---
Date of service: 07/11/20 Time of Service: 07:54 DS: Diagnosis Discharge Diagnosis (1) Status post repeat low transverse section: Status: Acute Discharge Plan Disposition Patient Disposition: HOME Condition: Good Discharge Details Reason For Visit: Admit Date/Time: 07/09/20 06:24 Admit Provider: Jimenez Luevano Attending Provider: Jimenez Luevano Primary Care Provider: Margie Ramey Hospital Course Hospital Course: Patient had a scheduled repeat section at term. She had uncomplicated surgery and course. She was discharged home post operative day #2, ambulating, tolerating regular diet, taking oral pain medication with stable vital signs. She will be seen back in the office in 1 to 2 weeks for incision check and again for routine care. Instructions were given. Home Meds and New Rx's Prescriptions: New ibuprofen 800 mg tablet 800 mg PO Q8H PRNQty: 30 RF: 0 docusate sodium [Colace] 100 mg capsule 100 mg PO BID Qty: 20 RF: 0 hydrocodone-acetaminophen [[place]aton] 5-325 mg tablet 1 tab PO Q8H PRNQty: 10 RF: 0 Continued prenat.vits,pia,ivb-told-dtovb Tablet 1 tab PO DAILY RF: 0 cephalexin [Keflex] 500 mg capsule 500 mg PO TID Qty: 21 RF: 0 aspirin [Adult Low Dose Aspirin] 81 mg tablet,delayed release (DR/EC) 81 mg PO DAILY RF: 0 DHA 200 mg capsule 200 mg PO DAILY RF: 0 Probiotic 3 billion cell Capsule 3,000 mmu cells PO DAILY RF: 0 Discharge Instructions Stand Alone Forms: BC Discharge Instruc Activity:: Activity as Tolerated Equipment/Supplies:: No Equipment Needed Diet:: As Tolerated Discharge Orders Discharge Orders: Discharge Order (Routine); Ordered 07/11/20 Ordered By: Cheyanne Otero OB:DS Summary Contraception Discussed Contraception Discussed: Yes, [place] Gender-Baby A: Female weight: 7 lb 13.4 oz Status at Discharge Functional status at discharge: independent ambulation Overall status at discharge: patient is back to baseline Mental Status: mental status grossly normal Speech and Movement: speech and movement normal Mood: congruent mood Affect: normal affect Exam Physical Exam Vital signs: Temp Pulse Resp BP Pulse Ox 98 F 71 18 102/64 95 07/11/20 04:10 07/11/20 04:10 07/11/20 04:10 07/11/20 04:10 07/10/20 08:10 Narrative: See physical exam from progress note dated today [facility] Medical History Elevated blood pressure affecting in third trimester, antepartum Threatened in first trimester Surgical History H/O section for breech Status post repeat low transverse section Family History Mother Cancer cervical Brain benign neoplasm Father A-fib Social History Smoking/Tobacco Use Status: Former Tobacco Use Quit Date: 12/11/19 Tobacco: How many years used: 12 Quit status: has quit before Alcohol Intake: current Alcohol Intake frequency: a few times a month Alcohol type: wine Details: 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 Drug use: Never Do you feel safe at home: Yes Do you feel safe in your relationship?: Yes History History 5 Para 4 Hx # Term Pregnancies 4 Multiple births 0 Hx # Pregnancies 0 Ectopic pregnancies 0 AB induced 0 Hx Number of Living Children 4 AB spontaneous 0 Past Pregnancies Del. Date GA/Weeks # Outcome Route Wgt Sex Labor Lgth Anesthesia Location Prov Complic 03/05/03 42 No Successful vaginal 8 lb 2 oz Female iol for post dates x 3days [facility]/cora ovd vacuum low apgars 01/18/07 42 No Successful vaginal 9 lb 12 oz Male x 2 hrs jai egan cnm/kathia for pph hemorrhage 02/24/12 42 No Successful vaginal 8 lb 11 oz Male post dates iol x 6 hrs locum cnm 05/24/13 40 No Successful 9 lb 8 oz Male c/s regional dr. braga Delivery Date: 03/05/03 ? medio lateral episiotomy : 2/5/6 LELONG,ANEA Delivery Date: 01/18/07 sweep of lower uterine segment, miso pr LELONG,ANEA Delivery Date: 02/24/12 w/o c/omplications LELONG,ANEA Delivery Date: 05/24/13 breech presentation after unstable lie x3 AJITKATHIARUSS DS: Data Vitals/I&O Vitals and I&O: Vital Signs Temperature 98 F 07/11/20 04:10 Pulse 71 07/11/20 04:10 Pulse Rhythm Regular 07/10/20 21:14 Respiratory Rate 18 07/11/20 04:10 Respiratory Effort 07/09/20 06:32 Respiratory Depth Normal 07/10/20 00:16 Respiratory Pattern Normal 07/09/20 06:32 Blood Pressure 102/64 07/11/20 04:10 Blood Pressure Mean 76 07/11/20 04:10 Pulse Oximetry 95 07/10/20 08:10 Oxygen Delivery Method Room Air 07/09/20 06:32 Oxygen Flow Rate 0 07/09/20 06:32 Pain Level 6 07/11/20 06:56 Comment 07/10/20 08:10 Intake & Output 07/10/20 07/10/20 07/11/20 11:59 23:59 11:59 Intake Total 1647.917 / 1647.917 Output Total 1700 / 1700 Balance -52.083 / -52.083 Intake: IV 947.917 / 947.917 Oral 700 / 700 Output: Urine 1700 / 1700 Other: Urine Color Yellow Pale Urine Appearance Clear Urine Odor None Voiding Methods Toilet
[2020-07-11 08:30] VITALS: BP 111/66; PULSE 71; RESP 16; TEMP 36.5; O2SAT 96
[2020-07-11] MEDS: Docusate Sodium 100 MG CAP PO (09:49)
== END 2020-07-11 14:05 | disposition home or self-care (01) | DRG 788 ==
LOC: PDS 06:24 → OBS 11:32
PROVIDERS: Admitting Provider Obstetrics & Gynecology; PCP Nurse Practitioner Adult Health; Visit Provider Obstetrics & Gynecology
PROC: 10D00Z1 Extraction of Products of Conception, Low, Open Approach (ICD-10-PCS; CPT 59514; principal; 2020-07-09 07:30)
DX: O34.211 Maternal care for low transverse scar from previous cesarean delivery (principal); Z37.0 Single live birth; O99.334 Smoking (tobacco) complicating childbirth; O09.523 Supervision of elderly multigravida, third trimester; F17.210 Nicotine dependence, cigarettes, uncomplicated; Z3A.39 39 weeks gestation of pregnancy
CPT/HCPCS: 59514; J0690; J1885; J2370; J2405; J3010

== ENCOUNTER 2020-08-29 12:52 | Outpatient (REF) | payer MEDICAID, SELFPAY ==
--- NOTE | 2020-08-29 12:00 | PAPFT_PTH ---
PATIENT: Isi Mckeon LOC: [facility] U#:[id number] AGE/SX: 40/F ROOM: RE08/29/[address]: Deidre Darden : 1980 BED: DIS: 08/29/2020 SPEC #: [id number] RECD: 08/29/20 13:21 STATUS: JACOB REQ #: [id number] RACHELL: 08/29/20 12:[address]: Deidre Darden DEPT: [facility] Cytology RECD BY: Miesha Manzano ENTERED: 08/29/20 13:21 SP TYPE: PAPFT OTHR DR: Margie Ramey Tissues: 1 - CX/ENDOCX FOR PAP SMEARS Procedures: PAP THIN PREP/UVM Screening HPV DNA PROBE Comments: [id number]
== END 2020-08-29 13:12 ==
LOC: LBN 12:52
PROVIDERS: PCP Nurse Practitioner Adult Health; Visit Provider Obstetrics & Gynecology Gynecology
DX: Z12.4 Encounter for screening for malignant neoplasm of cervix (principal); Z11.51 Encounter for screening for human papillomavirus (HPV)
CPT/HCPCS: 88142; 87624

== ENCOUNTER 2021-09-04 03:16 | Outpatient (CLI) | payer MEDICAID, SELFPAY ==
[2021-09-04 12:02] LABS: Kit/Specimen SENT
[2021-09-04 12:05] LABS: Abs Immature Grans 0.03 10^3/uL (0.0-0.06); Absolute Basophil Count 0.02 10^3/uL (0.0-0.2); Absolute Eosinophil Count 0.15 10^3/uL (0.0-0.7); Absolute Lymphocyte Count 2.07 10^3/uL (1.2-3.4); Absolute Monocyte Count 0.63 10^3/uL (0.1-0.8); Absolute Neutrophil Count 6.15 10^3/uL (1.2-6.7); Basophils % 0.2; Eosinophils % 1.7; HCT 36.2 % (36.0-46.0); HGB 11.9 g/dL (11.2-15.7); Immature Grans % 0.3; Lymphocytes % 22.9; MCH 30.2 pg (27.0-33.0); MCHC 32.9 % (32.0-36.0); MCV 91.9 fL (80-95); MPV 8.9 fL (8.0-11.0); Neutrophils % 67.9; Nucleated RBC 0 %; Platelet Count 252 10^3/uL (130-400); RBC 3.94 10^6/uL (3.93-5.22); RDW 12.8 % (11.7-14.6); WBC 9.05 10^3/uL (4.4-10.8)
[2021-09-04 12:11] LABS: Glucose,1 Hr (Glucola) 100 mg/dL (80-140)
[2021-09-04 14:23] LABS: *AMPHETAMINES SCREEN URINE Negative (Negative); *BARBITURATES SCREEN URINE Negative (Negative); *BENZODIAZEPINES SCREEN URINE Negative (Negative); Cannabinoids THC Negative (Negative); Cocaine Screen,Urine Negative (Negative); METHADONE URINE SCREEN Negative (Negative); OPIATES URINE SCREEN Negative (Negative); Tricyclic Antidepressants Negative (Negative)
[2021-09-05 11:28] LABS: HIV-1/2 Ag & Ab Screen Negative (Negative)
[2021-09-05 13:57] LABS: Syphilis Total Ab w/Reflex Nonreactive (Nonreactive)
[2021-09-07 09:57] LABS: Hepatitis B Surface Ag Negative (Negative)
[2021-09-07 10:48] LABS: Hepatitis C Ab w Rflx HCV PCR Negative (Negative)
[2021-09-07 11:04] LABS: Varicella IgG Antibody Positive (See Note)
[2021-09-07 11:07] LABS: Rubella IgG Ab (UVM) Positive (See Note)
[2021-09-07 15:07] LABS: Chlamydia Result Negative (Negative); GC Result Negative (Negative)
[2021-09-09 09:39] LABS: Buprenorphine Negative ng/mL (Cutoff: 5.0); Norbuprenorphine Negative ng/mL (Cutoff: 2.5)
== END 2021-09-04 03:17 | disposition home or self-care (01) ==
LOC: LBO 03:16
PROVIDERS: PCP Nurse Practitioner Adult Health; Visit Provider Advanced Practice Midwife
DX: O09.41 Supervision of pregnancy with grand multiparity, first trimester (principal)
CPT/HCPCS: 36415; 80307; 82950; 86787; 86803; 86850; 86900; 86901; 87340; 87389; 87491; 87591; 85025; 86762; 86780; 87086

== ENCOUNTER 2021-10-02 04:20 | Outpatient (CLI) | payer MEDICAID, SELFPAY ==
[2021-10-05 12:59] LABS: AFP 36.4 ng/mL; Calculated age at EDD 39 years; Cigarette smoking status non-Smoker; GA used in risk estimate Dates estimate; IVF Pregnancy No; Initial or repeat testing Initial testing; Insulin dependent diabetes No; Maternal Weight 194 lbs; Number of Fetuses 1; Physician Phone Number 802-748-7300; Prev Pregnancy w/NTD No; RECOMMENDED FOLLOW UP None.; Results Summary Normal risk
== END 2021-10-02 04:21 | disposition home or self-care (01) ==
LOC: LBO 04:20
PROVIDERS: Advanced Practice Midwife; PCP Nurse Practitioner Adult Health; Visit Provider Advanced Practice Midwife
DX: O09.522 Supervision of elderly multigravida, second trimester (principal)
CPT/HCPCS: 36415; 82105

== ENCOUNTER 2021-10-19 00:38 | Outpatient (CLI) | payer MEDICAID, SELFPAY ==
--- NOTE | 2021-10-19 06:30 | DI.US_ITS ---
Exam(s) US OB 2-3 TRIMESTER EXAM: US OB 2-3 TRIMESTER CLINICAL HISTORY: anatomy,z34.92. TECHNIQUE: Transabdominal obstetrical ultrasound performed. COMPARISON: No exams were available for comparison FINDINGS: Transabdominal obstetrical ultrasound performed. FINDINGS: Number of fetuses: One. position: Vertex. Placental grade: 2 Placental location: Anterior and low lying. Placental tip measures 8 millimeters from the internal o s. The cord insertion is marginal, measuring 1.6 cm from the edge of the placenta at the fundal radha on. BIOMETRIC DATA: BPD: 43 millimeters common 19+ 0 weeks HC: 161 millimeters, 18+ 6 weeks AC: 144 millimeters, 19+ 5 weeks FL: 31 millimeters, 19+ 4 weeks Cisterna Magna: 2.9 millimeters Cerebellum: 1.9 cm EFW: 301 grams, 72 percentile Composite Age: 19+ 2 weeks EDC by US: 13 March 2022 Heart Rate: 150BPM Amniotic fluid: Amount of fluid is visual within normal limits. ANATOMICAL SURVEY: Four-chambered heart: Unremarkable. LVOT: Unremarkable. RVOT: Unremarkable. Left-sided stomach: Unremarkable. urinary bladder: Unremarkable. Bilateral kidneys: Unremarkable. Three-vessel cord: Unremarkable. Cord insertion: Unremarkable. Umbilical artery velocity: Unremarkable. Posterior fossa:Unremarkable. ventricles: Unremarkable. nose: Unremarkable. lips: Unremarkable. palate: Unremarkable. spine: Unremarkable. Two arms and two legs: Unremarkable. IMPRESSION: 1. Single live intrauterine gestation as above. 2. Normal anatomic survey. 3. Low lying placenta. Marginal cord insertion. Follow-up recommended. DATA REPOSITORY:
== END 2021-10-19 00:58 ==
PROVIDERS: PCP Nurse Practitioner Adult Health; Visit Provider Advanced Practice Midwife
DX: O44.42 Low lying placenta NOS or without hemorrhage, second trimester (principal); Z3A.19 19 weeks gestation of pregnancy
CPT/HCPCS: 76805

== ENCOUNTER 2021-12-25 02:28 | Outpatient (CLI) | payer MEDICAID, SELFPAY ==
[2021-12-25 11:26] LABS: HCT 33.7 % (36.0-46.0); MCH 31.2 pg (27.0-33.0); MCHC 32.6 % (32.0-36.0); MCV 95.5 fL (80-95); MPV 8.6 fL (8.0-11.0); Platelet Count 225 10^3/uL (130-400); RBC 3.53 10^6/uL (3.93-5.22); RDW 12.5 % (11.7-14.6); RDW-SD 43.5 fL; WBC 10.05 10^3/uL (4.4-10.8)
[2021-12-25 11:35] LABS: Glucose,1 Hr (Glucola) 93 mg/dL (80-140)
== END 2021-12-25 02:29 | disposition home or self-care (01) ==
LOC: LBO 02:28
PROVIDERS: PCP Nurse Practitioner Adult Health; Visit Provider Advanced Practice Midwife
DX: O09.43 Supervision of pregnancy with grand multiparity, third trimester (principal); O34.211 Maternal care for low transverse scar from previous cesarean delivery; Z3A.28 28 weeks gestation of pregnancy
CPT/HCPCS: 36415; 82950; 85027

== ENCOUNTER → 2022-01-21 03:02 | Outpatient (CLI) | payer MEDICAID, SELFPAY ==
--- NOTE | 2022-01-21 07:30 | DI.US_ITS ---
Exam(s) US OB IGNACIO WEIGHT EXAM: US OB IGNACIO WEIGHT CLINICAL HISTORY: advanced maternal age,z68.30,bmi TECHNIQUE: Ultrasound performed using standard protocol. COMPARISON: US US OB 2-3 TRIMESTER from 10/19/2021 FINDINGS: Ob ultrasound was performed utilizing 3rd trimester protocol. biometry is consistent with gest ational age of 34 weeks 2 days and EDC of March 02. Estimated weight is 2431 grams which is at the 93rd percentile for predicted gestational age. Placenta is anterior with fundal position and no placenta previa. Fetus is in breech presentation. heart rate is 136 BPM. The amniotic fluid index is 20 and there is visually a normal quantity of amniotic fluid. IMPRESSION: DATA REPOSITORY:
== END ==
PROVIDERS: PCP Nurse Practitioner Adult Health; Visit Provider Advanced Practice Midwife
DX: O99.213 Obesity complicating pregnancy, third trimester; O09.523 Supervision of elderly multigravida, third trimester; Z3A.34 34 weeks gestation of pregnancy
CPT/HCPCS: 76816

== ENCOUNTER → 2022-02-17 03:18 | Outpatient (CLI) | payer MEDICAID, SELFPAY ==
--- NOTE | 2022-02-17 07:45 | DI.US_ITS ---
Exam(s) US OB IGNACIO WEIGHT EXAM: US OB IGNACIO WEIGHT CLINICAL HISTORY: repeat growth,z68.30 TECHNIQUE: Ultrasound performed using standard protocol. COMPARISON: US US OB IGNACIO WEIGHT from 01/21/2022 FINDINGS: Ob ultrasound was performed utilizing 3rd trimester protocol. biometry is consistent with a ge stational age of 36 weeks 3 days and EDC of March 14. The estimated weight is 2954 grams which is at the 59th percentile for predicted gestational ag e. Placenta is anterior with no placenta previa. There is visually a normal quantity of amniotic fluid and the IGNACIO is 21. heart rate is 136 BPM. Fetus is in cephalic presentation. IMPRESSION: DATA REPOSITORY:
== END ==
PROVIDERS: PCP Nurse Practitioner Adult Health; Visit Provider Obstetrics & Gynecology
DX: O99.213 Obesity complicating pregnancy, third trimester (principal); Z3A.36 36 weeks gestation of pregnancy
CPT/HCPCS: 76816

== ENCOUNTER 2022-02-17 18:14 | Outpatient (REF) | payer MEDICAID, SELFPAY | END 2022-02-17 18:15 | disposition home or self-care (01) | LOC: LBN 18:14 | PROVIDERS: PCP Nurse Practitioner Adult Health; Visit Provider Obstetrics & Gynecology Gynecology | DX: Z34.93 Encounter for supervision of normal pregnancy, unspecified, third trimester (principal); Z3A.36 36 weeks gestation of pregnancy; Z36.85 Encounter for antenatal screening for Streptococcus B | CPT/HCPCS: 87081 ==

== ENCOUNTER 2022-04-28 14:56 | Outpatient (REF) | payer MEDICAID, SELFPAY ==
--- NOTE | 2022-04-28 13:17 | PAPFT_PTH ---
PATIENT: Isi Mckeon LOC: [facility] U#:[id number] AGE/SX: 42/F ROOM: RE04/28/[address]: Cheyanne Otero DO : 1980 BED: DIS: 04/28/2022 SPEC #: [id number] RECD: 04/28/22 18:41 STATUS: JACOB REQ #: [id number] RACHELL: 04/28/22 13:[address]: Cheyanne Otero DEPT: [facility] Cytology RECD BY: Miesha Manzano ENTERED: 04/28/22 18:41 SP TYPE: PAPFT OTHR DR: Margie Ramey Tissues: 1 - CX/ENDOCX FOR PAP SMEARS Procedures: PAP THIN PREP/UVM Screening HPV DNA PROBE Comments: [id number]
== END 2022-04-28 14:57 | disposition home or self-care (01) ==
LOC: LBN 14:56
PROVIDERS: PCP Nurse Practitioner Adult Health; Visit Provider Obstetrics & Gynecology
DX: Z12.4 Encounter for screening for malignant neoplasm of cervix (principal); Z11.51 Encounter for screening for human papillomavirus (HPV)
CPT/HCPCS: 88142; 87624

== ENCOUNTER 2022-11-26 11:53 | Outpatient (REF) | payer MEDICAID, SELFPAY ==
--- NOTE | 2022-11-26 09:20 | SKI_PTH ---
PATIENT: Isi Mckeon LOC: [facility] U#:[id number] AGE/SX: 42/F ROOM: RE11/26/[address]: Marquez Donaldson DO : 1980 BED: DIS: 11/26/2022 SPEC #: [id number] RECD: 11/26/22 16:26 STATUS: JACOB REQ #: [id number] RACHELL: 11/26/22 09:[address]: Marquez Donaldson DEPT: Surgical Specimen RECD BY: Miesha Manzano ENTERED: 11/26/22 16:26 SP TYPE: SKI OTHR DR: Margie Ramey Tissues: 1 - SKIN BIOPSY(SHAVE/PUNCH) Procedures: SKIN LEVEL 4 Comments: [id number]
== END 2022-11-26 11:54 | disposition home or self-care (01) ==
LOC: LBN 11:53
PROVIDERS: PCP Nurse Practitioner Adult Health; Visit Provider Otolaryngology Otolaryngology/Facial Plastic Surgery
DX: D49.2 Neoplasm of unspecified behavior of bone, soft tissue, and skin (principal)
CPT/HCPCS: 88305

== ENCOUNTER 2023-12-31 13:56 | Outpatient (REF) | payer MEDICAID, SELFPAY ==
[2023-12-31 15:12] LABS: Bilirubin Negative (Negative); Blood Large (Negative); Clarity Cloudy (Clear); Glucose Negative (Negative); Ketones Negative (Negative); Leukocyte Esterase Large (Negative); Nitrite Negative (Negative); Urobilinogen 0.2 mg/dL (Up to 0.2)
[2023-12-31 15:37] LABS: Bacteria Moderate HPF (Negative); C & S Indicated? Yes; Casts Negative LPF (Negative); Crystals Negative HPF (Negative); Epithelial Cells Few HPF (Negative); Mucus Negative (Negative); Other Cells Rare Renal (Negative); WBC >50 HPF (0-5)
== END 2023-12-31 13:57 | disposition home or self-care (01) ==
LOC: LBN 13:56
PROVIDERS: PCP Nurse Practitioner Adult Health; Visit Provider Nurse Practitioner Family
DX: N39.0 Urinary tract infection, site not specified (principal)
CPT/HCPCS: 87077; 81003; 81015; 87086; 87186